=== PATIENT | female | born 1995 | race Two or more races ===

== ENCOUNTER → 2020-06-29 | Outpatient (CLI) | payer OTHER | END | disposition home or self-care (01) | LOC: OB 14:23 | PROVIDERS: ATTEND Obstetrics & Gynecology | DX: O99.891 Other specified diseases and conditions complicating pregnancy (principal); N13.30 Unspecified hydronephrosis; Z3A.34 34 weeks gestation of pregnancy | CPT/HCPCS: 76805 ==

== ENCOUNTER 2020-07-12 13:36 | Observation (INO) | payer MEDICAID ==
[~2020-07-12] VITALS: Ht 154.9 cm; Wt 68.0 kg
[2020-07-12] MEDS ORDERED: LACTATED RINGER'S 1,000 ML IV ONE (15:30)
[2020-07-12] MEDS ORDERED: TERBUTALINE SULFATE 1 MG/ML 1ML VIAL SC ONE (15:36)
[2020-07-12] MEDS ORDERED: BETAMETHASONE ACET (6MG/ML) 5ML VIAL ONE (15:37)
[2020-07-12] MEDS: TERBUTALINE SULFATE 1 MG/ML 1ML VIAL SC SCH ×3 (15:50→17:21)
[2020-07-12] MEDS ORDERED: BETAMETHASONE ACET (6MG/ML) 5ML VIAL IM SCH ×2 (16:00→22:00)
[2020-07-13] MEDS ORDERED: PREN-96 PO (16:22)
== END 2020-07-12 20:50 | disposition home or self-care (01) ==
LOC: LDRP 13:36
PROVIDERS: ADMIT Obstetrics & Gynecology; ATTEND Obstetrics & Gynecology
DX: O99.891 Other specified diseases and conditions complicating pregnancy (principal); N13.30 Unspecified hydronephrosis; O41.03X0 Oligohydramnios, third trimester, not applicable or unspecified; O26.893 Other specified pregnancy related conditions, third trimester; R10.9 Unspecified abdominal pain; Z3A.35 35 weeks gestation of pregnancy; Z91.81 History of falling; Z88.0 Allergy status to penicillin
CPT/HCPCS: 59025; 76815; 76817; 76818; 81002; 96360; 96361; 96372; G0378; J0702; J3105

== ENCOUNTER 2020-07-13 16:05 | Observation (INO) | payer MEDICAID ==
[~2020-07-13] VITALS: Ht 152.4 cm; Wt 57.2 kg
[2020-07-13] MEDS ORDERED: PREN-96 PO (16:22)
[2020-07-13] MEDS ORDERED: BETAMETHASONE ACET (6MG/ML) 5ML VIAL IM ONE (16:45)
== END 2020-07-13 17:27 | disposition home or self-care (01) ==
LOC: LDRP 16:05
PROVIDERS: ADMIT Obstetrics & Gynecology; ATTEND Obstetrics & Gynecology
DX: O60.03 Preterm labor without delivery, third trimester (principal); Z3A.35 35 weeks gestation of pregnancy
CPT/HCPCS: 59025; 81002; 96372; G0378; J0702

== ENCOUNTER 2020-07-19 10:28 | Observation (INO) | payer MEDICAID ==
[~2020-07-19 10:28] MED LIST: PREN-96 PO
== END 2020-07-19 13:26 | disposition home or self-care (01) ==
LOC: LDRP 10:28
PROVIDERS: ADMIT Obstetrics & Gynecology; ATTEND Obstetrics & Gynecology
DX: O99.891 Other specified diseases and conditions complicating pregnancy (principal); N13.30 Unspecified hydronephrosis; O99.323 Drug use complicating pregnancy, third trimester; F12.90 Cannabis use, unspecified, uncomplicated; Z79.899 Other long term (current) drug therapy; Z88.0 Allergy status to penicillin; Z3A.36 36 weeks gestation of pregnancy
CPT/HCPCS: 59025; 76818; 81002; G0378

== ENCOUNTER 2020-07-26 08:07 | Observation (INO) | payer MEDICAID ==
[2020-07-26] MEDS ORDERED: FOLI1TAB6 PO (09:19)
== END 2020-07-26 10:05 | disposition home or self-care (01) ==
LOC: LDRP 08:07
PROVIDERS: ADMIT Obstetrics & Gynecology; ATTEND Obstetrics & Gynecology
DX: O35.8XX0 Maternal care for other (suspected) fetal abnormality and damage, not applicable or unspecified (principal); Z3A.37 37 weeks gestation of pregnancy
CPT/HCPCS: 59025; 76818; 81002; G0378

== ENCOUNTER 2020-07-27 14:55 | Observation (INO) | payer MEDICAID ==
[~2020-07-27] VITALS: Ht 152 cm; Wt 55.8 kg
[~2020-07-27 14:55] MED LIST changes: +FOLI1TAB6 PO
== END 2020-07-27 19:01 | disposition home or self-care (01) ==
LOC: OB 14:55 → LDRP 16:50 → UNDOADMOB 16:50 → UNDODISOB 19:01
PROVIDERS: ADMIT Specialist; ATTEND Specialist
DX: O35.8XX0 Maternal care for other (suspected) fetal abnormality and damage, not applicable or unspecified (principal); Z3A.37 37 weeks gestation of pregnancy
CPT/HCPCS: 59025; 76818; 81002; G0378